=== PATIENT | female | born 1990 | race Caucasian/White ===

== ENCOUNTER 2020-09-13 20:38 | Emergency (ER) | payer MEDICAID, OTHER ==
[~2020-09-13] VITALS: Ht 162.5 cm; Wt 117.2 kg
--- NOTE | 2020-09-13 20:47 | ED Cough/URI ---
General Chief Complaint: Cough/Cold/Flu Symptoms Stated Complaint: COUGH/SOB History of Present Illness Date Seen by Provider: Sep 13, 2020 Time Seen by Provider: 20:46 Initial Comments 30-year-old female presents with cough for about 5 to 6 days. Patient got some mild shortness of breath that she she denies any fevers or chills. Patient reports is getting worse over the last few days. Patient does not smoke but is around someone smokes all the time. Patient does not have a sore throat, any fever or chills. Patient has been vaccinated twice for coronavirus. Allergies and Home Medications Allergies Coded Allergies: clindamycin (Verified Allergy, Unknown, 09/13/20) Home Medications Azithromycin 250 Mg Tablet, 250 MG PO UD TAKE 2 TABLETS ON DAY ONE THEN TAKE 1 TABLET DAILY FOR FOUR MORE DAYS Prescribed by: ANIL RIVERA on 09/13/202110 Benzonatate 100 Mg Capsule, 100 MG PO TID PRN for COUGH Prescribed by: ANIL RIVERA on 09/13/202110 Fluticasone Propionate 1 Ea Aero, 1 EA IH Q6H Prescribed by: ANIL RIVERA on 09/13/202110 Patient Home Medication List Home Medication List Reviewed: Yes Review of Systems Review of Systems Constitutional: No chills, No fever Respiratory: cough, short of breath Cardiovascular: no symptoms reported Gastrointestinal: no symptoms reported Genitourinary: no symptoms reported Musculoskeletal: no symptoms reported Skin: no symptoms reported Psychiatric/Neurological: No Symptoms Reported Hematologic/Lymphatic: No Symptoms Reported Immunological/Allergic: no symptoms reported Physical Exam Vital Signs - First Documented 09/13/20 21:29 O2 Flow Rate 12.00 Capillary Refill : Height: '" Weight: lbs. oz. kg; BMI Method: General Appearance: WD/WN, no apparent distress Respiratory: lungs clear, normal breath sounds, no respiratory distress Cardiovascular: normal peripheral pulses, regular rate, rhythm Gastrointestinal: non tender, soft Neurologic/Psychiatric: alert, normal mood/affect, oriented x 3 Skin: normal color, warm/dry Progress/Results/Core Measures Suspected Sepsis SIRS Temperature: Pulse: Respiratory Rate: Blood Pressure / Mean: Results/Orders My Orders Orders - ANIL RIVERA DO Albuterol/Ipra Inhalation Soln (Duoneb I (09/13/20 21:00) Svn Small Volume Nebulizer (09/13/20 20:54) Benzonatate Capsule (Tessalon Perles) (09/13/20 21:00) Chest 1 View Ap/Pa Only (09/13/20 20:54) Dexamethasone Injection (Decadron Inje (09/13/20 21:15) Medications Given in ED Current Medications Medications Dose Ordered Sig/Stevenson Route Start Time Stop Time Status Last Admin Dose Admin Albuterol/ Ipratropium 3 ml ONCE ONCE INH 09/13/20 21:00 09/13/20 21:01 DC 09/13/20 21:04 3 ML Dexamethasone Sodium Phosphate 10 mg ONCE ONCE PO 09/13/20 21:15 09/13/20 21:16 DC 09/13/20 21:29 10 MG Vital Signs/I&O 09/13/20 09/13/20 09/13/20 20:53 20:53 21:29 Temp 35.9 Pulse 108 Resp 20 B/P (MAP) 143/83 (103) Pulse Ox 98 98 O2 Delivery Room Air Room Air O2 Flow Rate 12.00 Capillary Refill : Departure Impression Primary Impression: Bronchitis Disposition: HOME, SELF-CARE Condition: Stable Departure-Patient Inst. Referrals: NO,LOCAL PHYSICIAN (PCP/Family) Primary Care Physician Patient Instructions: Bronchitis, Adult ED Scripts Benzonatate (Tessalon Perle) 100 Mg Capsule 100 MG PO TID PRN for COUGH, #15 CAP Prov: PERRY RIVERAR Donna DO 09/13/20 Fluticasone Propionate (Flovent Hfa 110 mcg) 1 Ea Aero 1 EA IH Q6H for Wheezing, #1 EA Prov: PERRY RIVERAR L DO 09/13/20 Azithromycin (Azithromycin) 250 Mg Tablet 250 MG PO UD, #6 TAB TAKE 2 TABLETS ON DAY ONE THEN TAKE 1 TABLET DAILY FOR FOUR MORE DAYS Prov: PERRY RIVERAR L DO 09/13/20 ANIL RIVERA DO Sep 13, 2020 20:47
[2020-09-13 20:53] VITALS: BP 143/83
[2020-09-13] MEDS ORDERED: BENZONATATE 100 MG (TESSALON) CAPSULE PO SCH (21:00)
[2020-09-13] MEDS ORDERED: RT-ALBUTEROL/IPRATROPIUM 3 ML (DUONEB) VIAL INH ONE (21:00)
[2020-09-13] MEDS ORDERED: FLT11013 IH (21:11)
[2020-09-13] MEDS ORDERED: AZIT250T12 PO (21:11)
[2020-09-13] MEDS ORDERED: BENZ-13 PO (21:11)
--- NOTE | 2020-09-13 22:50 | Diagnostic Imaging Report ---
Clinical indications: Patient with cough. Exam: Portable chest x-ray upright view. Comparisons: None. Findings: Lungs/pleura: Lungs are clear. There is no pneumothorax. There is no pleural effusion. Mediastinum: Unremarkable. Pulmonary vasculature: Unremarkable. Heart: Unremarkable. Bones/extrathoracic soft tissue: Unremarkable. Impression: There is no radiographic evidence of acute cardiopulmonary process. Dictated by: Dictated on workstation # [id number]
== END 2020-09-13 21:34 | disposition home or self-care (01) ==
LOC: ER FS 20:42
DX: J40 Bronchitis, not specified as acute or chronic (principal); Z77.22 Contact with and (suspected) exposure to environmental tobacco smoke (acute) (chronic)
CPT/HCPCS: 71045; 94640

== ENCOUNTER 2020-10-04 19:03 | Emergency (ER) | payer MEDICAID ==
[~2020-10-04 19:03] MED LIST: AZIT250T12 PO; BENZ-13 PO; FLT11013 IH
== END 2020-10-04 19:21 | disposition left against medical advice (07) ==
LOC: EDUNIT# 19:03 → ER FS 19:06
DX: T14.8XXA Other injury of unspecified body region, initial encounter (principal)

== ENCOUNTER 2020-10-19 22:40 | Emergency (ER) | payer MEDICAID ==
[~2020-10-19] VITALS: Ht 162.5 cm; Wt 114.9 kg
[2020-10-19 23:16] LABS: BASOPHILS # (AUTO) 0.1 10^3/uL (0.0-0.1); BASOPHILS % (AUTO) 1 % (0-10); EOSINOPHILS # (AUTO) 0.3 10^3/uL (0.0-0.3); EOSINOPHILS % (AUTO) 3 % (0-10); HEMATOCRIT 43 % (35-52); HEMOGLOBIN 14.3 G/DL (11.5-16.0); LYMPHOCYTES # (AUTO) 3.5 X 10^3 (1.0-4.0); LYMPHOCYTES % (AUTO) 31 % (12-44); MEAN CORPUSCULAR HEMOGLOBIN 27 PG (25-34); MEAN CORPUSCULAR HGB CONC 33 G/DL (32-36); MEAN CORPUSCULAR VOLUME 81 FL (80-99); MEAN PLATELET VOLUME 10.1 FL (7.4-10.4); MONOCYTES # (AUTO) 0.7 X 10^3 (0.0-1.0); MONOCYTES % (AUTO) 6 % (0-12); NEUTROPHILS # (AUTO) 6.5 X 10^3 (1.8-7.8); NEUTROPHILS % (AUTO) 59 % (42-75); PLATELET COUNT 112 10^3/uL (130-400); WHITE BLOOD COUNT 11.1 10^3/uL (4.3-11.0)
[2020-10-19 23:17] LABS: BACTERIA,URINE MODERATE /HPF; BILIRUBIN,URINE NEGATIVE (NEGATIVE); CLARITY,URINE SLIGHTLY CLOUDY; COLOR,URINE YELLOW; GLUCOSE, URINE (UA) 3+ (NEGATIVE); KETONES,URINE NEGATIVE (NEGATIVE); LEUKOCYTE ESTERASE ,URINE NEGATIVE (NEGATIVE); NITRITE,URINE NEGATIVE (NEGATIVE); PROTEIN,URINE TRACE (NEGATIVE); RBC,URINE RARE /HPF
[2020-10-19 23:37] LABS: POTASSIUM 4.1 MMOL/L (3.6-5.0)
[2020-10-19 23:38] LABS: ALBUMIN 4.2 GM/DL (3.2-4.5); BILIRUBIN,TOTAL 0.4 MG/DL (0.1-1.0); CALCIUM 9.5 MG/DL (8.5-10.1); CREATININE SERUM 0.49 MG/DL (0.60-1.30); TOTAL PROTEIN 7.7 GM/DL (6.4-8.2)
[2020-10-20] MEDS ORDERED: fentaNYL INJ 100 MCG/2 ML AMP IVP ONE (00:15)
[2020-10-20] MEDS ORDERED: ONDANSETRON 4 MG/2 ML (SDV) Z0FRAN IVP ONE (00:15)
[2020-10-20] MEDS ORDERED: NS IV 1000 ML 1,000 ML IV SCH (00:15)
[2020-10-20] MEDS ORDERED: NS 100 ML (IVPB) BAG IV ONE (00:30)
[2020-10-20] MEDS ORDERED: IOHEXOL 350 MG/ML 100 ML (OMNIPAQUE 350) VIAL IV ONE (00:30)
[2020-10-20] MEDS ORDERED: HOLD METFORMIN - RECEIVED CONTRAST 20 ML VIAL IV SCH (00:30)
--- NOTE | 2020-10-20 01:24 | ED Abdominal Pain ---
General Chief Complaint: Abdominal/GI Problems Stated Complaint: LOWER ABDOMINAL PAIN Nursing Triage Note: Patient states that she is having lower right and left quadrant abdominal pain. Patient states that it radiates to me medial part of the abdomen. Patient states she was recently diagnosed with gastroparesis. Source of Information: Patient Exam Limitations: No Limitations History of Present Illness Date Seen by Provider: Oct 20, 2020 Time Seen by Provider: 00:00 Initial Comments Patient is a 30-year-old female with a history of endometriosis, total abdominal hysterectomy with bilateral salpingo-oophorectomy, gastroparesis and irritable bowel syndrome who presents with diffuse lower abdominal pain/cramping which is migratory. Pain is dull rated moderate to severe. Worse with palpation and movement. She has had a move find position of comfort. Symptom onset was several hours ago. No nausea vomiting, flank pain, fever chills, sweats. No constipation or diarrhea. No other acute symptoms or complaints. Of note, patient is an insulin-dependent diabetic. She is currently out of needles and has not administered insulin in the past 2 days. Timing/Duration: 4-6 Hours Severity/Quality: Moderate Location: RLQ, LLQ Activities at Onset: Other Modifying Factors: Improves With Other Associated Symptoms: Other Allergies and Home Medications Allergies Coded Allergies: clindamycin (Verified Allergy, Unknown, 09/13/20) Home Medications Azithromycin 250 Mg Tablet, 250 MG PO UD TAKE 2 TABLETS ON DAY ONE THEN TAKE 1 TABLET DAILY FOR FOUR MORE DAYS Prescribed by: ANIL RIVERA on 09/13/202110 Benzonatate 100 Mg Capsule, 100 MG PO TID PRN for COUGH Prescribed by: ANIL RIVERA on 09/13/202110 Fluticasone Propionate 1 Ea Aero, 1 EA IH Q6H Prescribed by: ANIL RIVERA on 09/13/202110 Patient Home Medication List Home Medication List Reviewed: Yes Review of Systems Review of Systems Constitutional: see HPI EENTM: See HPI Respiratory: See HPI Cardiovascular: See HPI Gastrointestinal: See HPI Genitourinary: See HPI Musculoskeletal: see HPI Skin: see HPI Psychiatric/Neurological: See HPI Endocrine: See HPI Hematologic/Lymphatic: See HPI All Other Systems Reviewed Negative Unless Noted: Yes Past Vrzanjc-Xrysee-Fgcody Hx Patient Social History Tobacco Use?: Yes Substance use?: No Alcohol Use?: No Pt feels they are or have been: No Past Medical History Surgery/Hospitalization HX: IBS, Gastroparesis, Diabetes, Hysterectomy Physical Exam Vital Signs Vital Signs - First Documented 10/19/20 22:48 Temp 37.2 Pulse 105 Resp 18 B/P (MAP) 118/67 (84) Pulse Ox 98 O2 Delivery Room Air Capillary Refill : Less Than 3 Seconds Height/Weight/BMI Height: '" Weight: lbs. oz. kg; 43.00 BMI Method: General Appearance: WD/WN, no apparent distress, obese HEENT: PERRL/EOMI Neck: non-tender, supple Respiratory: chest non-tender, lungs clear, normal breath sounds Cardiovascular: normal peripheral pulses, regular rate, rhythm, no edema Gastrointestinal: soft, other (Diffuse lower abdominal pain/tenderness, body habitus compromising exam.) Extremities: normal range of motion Neurologic/Psychiatric: fancy wire drawer II-XII nml as tested, no motor/sensory deficits, alert, oriented x 3 Focused Exam Sepsis Stage: Ruled Out Progress/Results/Core Measures Results/Orders Lab Results Laboratory Tests Test 10/19/20 22:48 10/19/20 23:15 Range/Units Urine Color YELLOW Urine Clarity SLIGHTLY CLOUDY Urine pH 6.0 5-9 Urine Specific [place] 1.010 L 1.016-1.022 Urine Protein TRACE H NEGATIVE Urine Glucose (UA) 3+ H NEGATIVE Urine Ketones NEGATIVE NEGATIVE Urine Nitrite NEGATIVE NEGATIVE Urine Bilirubin NEGATIVE NEGATIVE Urine Urobilinogen 0.2 < = 1.0 MG/DL Urine Leukocyte Esterase NEGATIVE NEGATIVE Urine RBC (Auto) TRACE-I NEGATIVE Urine RBC RARE /HPF Urine WBC 10-25 H /HPF Urine Squamous Epithelial Cells 5-10 /HPF Urine Crystals NONE /LPF Urine Bacteria MODERATE H /HPF Urine Casts NONE /LPF Urine Mucus MODERATE H /LPF Urine Culture Indicated YES White Blood Count 11.1 H 4.3-11.0 10^3/uL Red Blood Count 5.33 4.35-5.85 10^6/uL Hemoglobin 14.3 11.5-16.0 G/DL Hematocrit 43 35-52 % Mean Corpuscular Volume 81 80-99 FL Mean Corpuscular Hemoglobin 27 25-34 PG Mean Corpuscular Hemoglobin Concent 33 32-36 G/DL Red Cell Distribution Width 14.1 10.0-14.5 % Platelet Count 112 L 130-400 10^3/uL Mean Platelet Volume 10.1 7.4-10.4 FL Immature Granulocyte % (Auto) 0 % Neutrophils (%) (Auto) 59 42-75 % Lymphocytes (%) (Auto) 31 12-44 % Monocytes (%) (Auto) 6 0-12 % Eosinophils (%) (Auto) 3 0-10 % Basophils (%) (Auto) 1 0-10 % Neutrophils # (Auto) 6.5 1.8-7.8 X 10^3 Lymphocytes # (Auto) 3.5 1.0-4.0 X 10^3 Monocytes # (Auto) 0.7 0.0-1.0 X 10^3 Eosinophils # (Auto) 0.3 0.0-0.3 10^3/uL Basophils # (Auto) 0.1 0.0-0.1 10^3/uL Immature Granulocyte # (Auto) 0.0 0.0-0.1 10^3/uL Percent Immature Platelet Fraction 5.9 0.0-7.6 % Sodium Level 133 L 135-145 MMOL/L Potassium Level 4.1 3.6-5.0 MMOL/L Chloride Level 98 98-107 MMOL/L Carbon Dioxide Level 18 L 21-32 MMOL/L Anion Gap 17 H 5-14 MMOL/L Blood Urea Nitrogen 4 L 7-18 MG/DL Creatinine 0.49 L 0.60-1.30 MG/DL Estimat Glomerular Filtration Rate 150 BUN/Creatinine Ratio 8 Glucose Level 445 *H 70-105 MG/DL Calcium Level 9.5 8.5-10.1 MG/DL Corrected Calcium 9.3 8.5-10.1 MG/DL Total Bilirubin 0.4 0.1-1.0 MG/DL Aspartate Amino Transf (AST/SGOT) 46 H 5-34 U/L Alanine Aminotransferase (ALT/SGPT) 64 H 0-55 U/L Alkaline Phosphatase 106 40-136 U/L Total Protein 7.7 6.4-8.2 GM/DL Albumin 4.2 3.2-4.5 GM/DL Lipase 21 8-78 U/L My Orders Orders - MARIAELENA RANKIN DO Cbc With Automated Diff (10/19/20 23:12) Comprehensive Metabolic Panel (10/19/20 23:12) Ua Culture If Indicated (10/19/20 23:12) Urine Bedside (10/19/20 23:12) Lipase (10/19/20 23:12) Urine Culture (10/19/20 22:48) Ct Abd/Pelv W (Appendicitis) (10/20/20 00:13) Ns Iv 1000 Ml (Sodium Chloride 0.9%) (10/20/20 00:15) Fentanyl Inj (Sublimaze Injection) (10/20/20 00:15) Ondansetron Injection (Zofran Injectio (10/20/20 00:15) Iohexol Injection (Omnipaque 350 Mg/Ml 1 (10/20/20 00:30) Received Contrast (Hold Metformin- Contr (10/20/20 00:30) Ns (Ivpb) (Sodium Chloride 0.9% Ivpb Bag (10/20/20 00:30) Medications Given in ED Current Medications Medications Dose Ordered Sig/Stevenson Route Start Time Stop Time Status Last Admin Dose Admin Fentanyl Citrate 50 mcg ONCE ONCE IVP 10/20/20 00:15 10/20/20 00:16 DC 10/20/20 01:01 50 MCG Iohexol 100 ml ONCE ONCE IV 10/20/20 00:30 10/20/20 00:31 DC 10/20/20 01:01 100 ML Ondansetron HCl 4 mg ONCE ONCE IVP 10/20/20 00:15 10/20/20 00:16 DC 10/20/20 01:01 4 MG Sodium Chloride 100 ml ONCE ONCE IV 10/20/20 00:30 10/20/20 00:31 DC 10/20/20 01:01 80 ML Vital Signs/I&O 10/19/20 22:48 Temp 37.2 Pulse 105 Resp 18 B/P (MAP) 118/67 (84) Pulse Ox 98 O2 Delivery Room Air Blood Pressure Mean: 84 Departure Communication (Admissions) CT abdomen pelvis: No acute cardiopulmonary disease. Nondescript lower abdominal pain. CT abdomen pelvis reassuring. History of irritable bowel syndrome gastroparesis. Recommendations are continued supportive care. Patient now plans to procure additional diabetic supplies tomorrow and has ample insulin. Recommendations continue diabetic care as prescribed. Impression Primary Impression: Abdominal pain Disposition: 01 HOME, SELF-CARE Condition: Stable Departure-Patient Inst. Decision time for Depature: 01:51 Referrals: NO,LOCAL PHYSICIAN (PCP) Primary Care Physician Patient Instructions: Abdominal Pain, Adult ED Add. Discharge Instructions: You were evaluated in the emergency department for abdominal pain. Lab EKG and CT abdomen pelvis were performed and are nondiagnostic. The exact cause of your symptoms has not been determined but may be related to irritable bowel syndrome. Please increase daily fluid and fiber intake and take Bentyl as directed. Resume insulin schedule soon as possible. Return to the ED if new or worsening symptoms. All discharge instructions reviewed with patient and/or family. Voiced understanding. Scripts Dicyclomine HCl (Dicyclomine HCl) 20 Mg Tablet 20 MG PO QID, #20 TAB Prov: MARIAELENA RANKIN DO 10/20/20 MARIAELENA RANKIN DO Oct 20, 2020 01:23
[2020-10-20] MEDS ORDERED: DICY20TA10 PO (01:53)
[2020-10-20 01:56] VITALS: BP 147/85
[2020-10-20] MEDS ORDERED: CEPH500T PO (01:58)
--- NOTE | 2020-10-20 07:12 | Diagnostic Imaging Report ---
PROCEDURE: CT abdomen and pelvis with contrast, rule out appendicitis. TECHNIQUE: Multiple contiguous axial images were obtained through the abdomen and pelvis after the administration of intravenous contrast. All CT scans use one or more of the following dose optimizing techniques: automated exposure control, MA and/or KvP adjustment based on patient size and exam type or iterative reconstruction. INDICATION: Right lower quadrant pain. FINDINGS: The heart size is normal. The lung bases are clear. The liver is normal in size without focal lesions. Gallbladder is unremarkable. There is no biliary ductal dilatation. Spleen is normal. The pancreas and adrenal glands are unremarkable. Kidneys are normal in appearance. The aorta is nonaneurysmal. The bowel gas pattern is nonspecific. There is no CT evidence of appendicitis. There is no free air. There is no ascites. There are no focal inflammatory changes. Bladder is normal. There is no pelvic mass, adenopathy or free fluid. There are mild degenerative changes in the spine. IMPRESSION: No acute abnormality in the abdomen or pelvis. Dictated by: Dictated on workstation # [id number]
== END 2020-10-20 01:56 | disposition home or self-care (01) ==
LOC: EDUNIT# 22:40 → ER FS 22:43
DX: R10.31 Right lower quadrant pain (principal); R10.32 Left lower quadrant pain; E11.9 Type 2 diabetes mellitus without complications; E66.9 Obesity, unspecified; Z68.41 Body mass index [BMI] 40.0-44.9, adult; Z90.710 Acquired absence of both cervix and uterus; Z90.722 Acquired absence of ovaries, bilateral
CPT/HCPCS: 36415; 74177; 80053; 81000; 83690; 85025; 87077; 87088; 87186